=== PATIENT | male | born 1975 | race Caucasian/White ===

== ENCOUNTER 2016-05-29 00:47 | Emergency (ER) | payer MEDICAID, OTHER ==
[~2016-05-29] VITALS: Wt 104.0 kg
[2016-05-29] MEDS ORDERED: SOD CHLORIDE 0.9% 1,000 ML IV STA (01:15)
[2016-05-29] MEDS ORDERED: KETOROLAC 30 MG INJ IV STA (01:15)
[2016-05-29] MEDS ORDERED: ONDANSETRON 4 MG INJ IV STA ×2 (01:15→03:28)
--- NOTE | 2016-05-29 01:38 | ERD ---
ER Documentation Chief Complaint Date/Time DATE: 05/29/16 TIME: 01:35 Chief Complaint Right flank pain x3 hours ago. Hx of Kidney stone. HPI Patient is a 41-year-old male who presents to the ED with right flank pain 3 hours. He states that he has had kidney stones in the past and states that his pain is exactly what he felt like when he had a passing kidney stone. He states that the pain came on suddenly and is constant and he is unable to find a comfortable position. Denies dysuria. Denies fever or chills. Has not taken anything for his symptoms. Denies abdominal pain but also complains of nausea without vomiting. Last bowel movement was today. Denies headache or dizziness. Denies neck pain or stiffness. Denies chest pain, cough, shortness of breath or difficulty breathing. ROS All systems reviewed and are negative except as per history of present illness. Medications Home Meds Active Scripts Tamsulosin Hcl* (Flomax*) 0.4 Mg Cap.er.24h, 0.4 MG PO BID, #30 CAP Prov:YONI FLOWER PA-C 05/29/16 Ondansetron Hcl* (Zofran*) 4 Mg Tablet, 4 MG PO Q6H for NAUSEA AND/OR VOMITING, #30 TAB Prov:YONI FLOWER-C 05/29/16 Hydrocodone/Acetaminophen (Tarkio 5-325 Tablet) 1 Each Tablet, 1 TAB PO Q6H Y for PAIN, #7 TAB Prov:CYNTHIATABARRIEANYONI-C 05/29/16 Allergies Allergies: Coded Allergies: No Known Allergy (Unverified , 04/17/13) PMhx/Soc History of Surgery: No Anesthesia Reaction: No Hx Neurological Disorder: No Hx Respiratory Disorders: No Hx Psychiatric Problems: No Hx Alcohol Use: No Hx Substance Use: No Hx Tobacco Use: No Smoking Status: Current some day smoker Physical Exam Vitals Vital Signs Date Time Temp Pulse Resp B/P Pulse Ox O2 Delivery O2 Flow Rate FiO2 05/29/16 00:55 98.3 78 18 137/79 98 Physical Exam GENERAL: Well-developed, well-nourished male. Appears in no acute distress. HEAD: Normocephalic, atraumatic. EYES: Pupils are equally reactive bilaterally. EOMs grossly intact. No conjunctival erythema. ENT: Moist mucous membranes. No uvula deviation. No kissing tonsils. No exudates. NECK: Supple. No lymphadenopathy or thyromegaly. No meningismus. negative kernig. negative brudinski. LUNG: Clear to auscultation bilaterally. No rhonchi, wheezing, rales or coarse breath sounds. HEART: Regular rate and rhythm. No murmurs, rubs or gallops. Extremities: Equal pulses bilaterally. No peripheral clubbing, cyanosis or edema. No unilateral leg swelling. NEUROLOGIC: Alert and oriented. Moving all four extremities. 5/5 strength in all extremities. Normal speech. Steady gait. SKIN: Normal color. Warm and dry. No rashes or lesions. Capillary refill < 2 seconds Result Diagram: 05/29/1622905/29/16 023 Results 24 hrs Laboratory Tests Test 05/29/16 02:30 White Blood Count 8.710^3/ul Red Blood Count 3.9910^6/ul Hemoglobin 11.7g/dl Hematocrit 35.8% Mean Corpuscular Volume 89.7fl Mean Corpuscular Hemoglobin 29.3pg Mean Corpuscular Hemoglobin Concent 32.7g/dl Red Cell Distribution Width 12.7% Platelet Count 89010^3/UL Mean Platelet Volume 10.5fl Neutrophils % 74.0% Lymphocytes % 16.4% Monocytes % 6.6% Eosinophils % 2.4% Basophils % 0.3% Nucleated Red Blood Cells % 0.0/100WBC Neutrophils # 6.510^3/ul Lymphocytes # 1.410^3/ul Monocytes # 0.610^3/ul Eosinophils # 0.210^3/ul Basophils # 0.010^3/ul Nucleated Red Blood Cells # 0.010^3/ul Urine Color BROWN Urine Clarity CLEAR Urine pH 7.0 Urine Specific Gantt 1.020 Urine Ketones NEGATIVE Urine Nitrite NEGATIVE Urine Bilirubin NEGATIVE Urine Urobilinogen 0.2 E.U./dL Urine Leukocyte Esterase NEGATIVE Urine Microscopic RBC >200/HPF Urine Microscopic WBC 0-2/HPF Urine Bacteria RARE Urine Mucus FEW Urine Hemoglobin 3+ Urine Glucose NEGATIVE% Urine Total Protein 1+ Sodium Level 144mmol/L Potassium Level 4.2mmol/L Chloride Level 102mmol/L Carbon Dioxide Level 30mmol/L Anion Gap 16 Blood Urea Nitrogen 24mg/dl Creatinine 0.85mg/dl Glucose Level 107mg/dl Calcium Level 9.4mg/dl Total Bilirubin 0.1mg/dl Direct Bilirubin 0.00mg/dl Indirect Bilirubin 0.1mg/dl Aspartate Amino Transf (AST/SGOT) 26IU/L Alanine Aminotransferase (ALT/SGPT) 26IU/L Alkaline Phosphatase 63IU/L Total Protein 7.6g/dl Albumin 4.2g/dl Globulin 3.40g/dl Albumin/Globulin Ratio 1.23 Lipase 42U/L Current Medications Medications (Trade) Dose Ordered Sig/Jay Route PRN Reason Start Time Stop Time Status Last Admin Dose Admin Sodium Chloride (NS) 1,000 ml @ 1,000 mls/hr Q1H STAT IV 05/29/16 01:15 05/29/16 02:14 DC 05/29/16 02:11 Ondansetron HCl (Zofran Inj) 4 mg ONCE STAT IV 05/29/16 01:15 05/29/16 01:17 DC 05/29/16 02:02 Ketorolac Tromethamine (Toradol) 30 mg ONCE STAT IV 05/29/16 01:15 05/29/16 01:17 DC 05/29/16 02:02 Morphine Sulfate (morphine) 4 mg ONCE STAT IV 05/29/16 03:28 05/29/16 03:29 DC Ondansetron HCl (Zofran Inj) 4 mg ONCE STAT IV 05/29/16 03:28 05/29/16 03:29 DC Procedures/MDM ER COURSE: I kept the patient and/or family informed of laboratory and diagnostic imaging results throughout the emergency room course. EKG, MONITORS, & DIAGNOSTIC IMAGING: [place] [id number] Radiology Main Line: [phone] DIAGNOSTIC IMAGING REPORT Patient: KIRK OCONNELL : 1975 Age: 41 Sex: M MR #: [id number] DOS: 05/29/16 0115 Ordering MD: YONI FLOWER PA-C Location: E Room/Bed: PROCEDURE: CT Abdomen and pelvis without contrast. CLINICAL INDICATION: Abdominal pain. TECHNIQUE: CT scan of the abdomen and pelvis was performed on a multi- detector high-resolution CT scanner. Contiguous axial images were obtained from the lung bases to the ischial tuberosities without intravenous contrast. Coronal and sagittal reformatted images were also obtained. Images were reviewed on the PACS workstation. One or more of the following dose reduction techniques were used: - Automated exposure control. - Adjustment of the mA and/or kV according to patient size. - Use of iterative reconstruction technique. Exam CTD/vol = 18.70 mGy. Total exam DLP = 1271.84 mGy-cm. COMPARISON: 04/17/2013. FINDINGS: Evaluation of the lung bases demonstrates no pleural or parenchymal disease. Abdomen: The liver is normal in size. There is no focal mass or dilatation of the biliary tree. The gallbladder is not distended. The spleen, pancreas and bilateral adrenal glands are within normal limits. Bilateral kidneys are normal in size with no contour deforming mass identified. There are small 1-2 mm renal calculi bilaterally. There is mild right-sided hydronephrosis with perinephric stranding. There is no contour deforming renal mass identified. There is no retroperitoneal adenopathy. The abdominal aorta is of normal caliber. There is a tiny umbilical hernia containing fat. There is no abnormal bowel wall thickening or distension. There is no bowel obstruction or free air. A normal appendix is identified. There is no diverticulosis or diverticulitis. There is no ascites. Pelvis: The bladder is unremarkable. There is a 4.0 x 2.5 mm calculus within the right distal ureter. The prostate and seminal vesicles are within normal limits. There is no significant pelvic adenopathy or free fluid. Evaluation of the osseous structures demonstrates no suspicious lytic or blastic lesion. IMPRESSION: Right distal ureteral 4.0 x 2.5 mm calculus with mild right-sided hydronephrosis. Bilateral renal calculi. Tiny umbilical hernia containing fat. .Won Hall MD, MD Date Time Electronically viewed and signed by .Won Hall MD, MD on 05/29/2016 02:48 .T/ CC: YONI FLOWER PA-C MEDICATIONS: IV fluids, Zofran, Toradol and morphine. Patient tolerated well and stated improvement in symptoms. LAB INTERPRETATION: CBC showed no evidence of systemic infection or severe anemia. CMP showed no evidence of electrolyte abnormalities, severe acidosis, alkalosis, renal failure , or liver disease. Lipase showed no evidence of acute pancreatitis. UA showed no evidence of leukocytes, nitrites. Urine shows 3+ hemoglobin MEDICAL DECISION MAKING: This is a 41-year-old male who presents with flank pain 1 day. Vital signs were reviewed. Patient is afebrile. Patient is not hypoxic. Patient has nephrolithiasis. Low suspicion for cauda equine syndrome, spinal epidural hematoma, spinal epidural abscess, osteomyelitis, fracture, aortic dissection, AAA, pyelonephritis, septic stone, obstructed stone. I consulted with Dr. Serrano regarding this patient who reviewed his imaging studies and laboratory studies. Patient is stable for outpatient therapy I reexamined patient after administration of MAC medication and he stated improvement in symptoms. DISCHARGE: At this time, patient is stable for discharge and outpatient management with no new complaints during the ER course. Patient was sent home with copy of his imaging studies and laboratory studies, Tarkio for pain, Flomax and Zofran for nausea advised patient to follow-up with urologist. Names of urologists were given.. Patient will be discharged home with instructions to recheck for new or worsening symptoms such as fever, nausea, weakness, LOC and to follow up with primary care in the next 1-2 days. Patient was advised to return to the ER for any new or worsening symptoms. Plan was discussed and patient and/or family understands and agrees. Home instructions were given. Departure Diagnosis: Primary Impression: Flank pain Condition: Stable YONI FLOWER PA-C May 29, 2016 01:38
[2016-05-29 02:33] LABS: ADD SCAN DIFF NO
[2016-05-29 02:34] LABS: ADD UMIC YES; URINE BILIRUBIN (Dip) NEGATIVE (NEGATIVE); URINE BLOOD (Dip) 3+ (NEGATIVE); URINE COLOR BROWN (YELLOW); URINE GLUCOSE (Dip) NEGATIVE (NEGATIVE); URINE KETONES (Dip) NEGATIVE (NEGATIVE); URINE LEUKOCYTE ESTERASE (Dip) NEGATIVE (NEGATIVE); URINE NITRITE (Dip) NEGATIVE (NEGATIVE); URINE TOTAL PROTEIN (Dip) 1+ (NEGATIVE); URINE UROBILINOGEN (Dip) 0.2 E.U./dL (0.1-1.0)
[2016-05-29 02:38] LABS: BASOPHILS % 0.3 % (0.0-2.0); EOSINOPHILS # 0.2 10^3/ul (0.0-0.5); EOSINOPHILS % 2.4 % (0.0-7.0); HEMATOCRIT 35.8 % (42.0-52.0); HEMOGLOBIN 11.7 g/dl (14.0-18.0); LYMPHOCYTES # 1.4 10^3/ul (0.8-2.9); LYMPHOCYTES % 16.4 % (15.0-51.0); MEAN CORPUSCULAR HEMOGLOBIN 29.3 pg (29.0-33.0); MEAN CORPUSCULAR HGB CONC 32.7 g/dl (32.0-37.0); MEAN CORPUSCULAR VOLUME 89.7 fl (82.0-101.0); MEAN PLATELET VOLUME 10.5 fl (7.4-10.4); MONOCYTE # 0.6 10^3/ul (0.3-0.9); MONOCYTES % 6.6 % (0.0-11.0); NEUTROPHIL # 6.5 10^3/ul (1.6-7.5); PLATELET COUNT 305 10^3/UL (140-415); RED BLOOD COUNT 3.99 10^6/ul (4.70-6.10); RED CELL DISTRIBUTION WIDTH 12.7 % (11.5-14.5); WHITE BLOOD COUNT 8.7 10^3/ul (4.8-10.8)
[2016-05-29 02:45] LABS: ALBUMIN 4.2 g/dl (3.3-4.9); POTASSIUM 4.2 mmol/L (3.5-5.1)
[2016-05-29 02:47] LABS: CREATININE 0.85 mg/dl (0.61-1.24)
[2016-05-29 02:48] LABS: ALBUMIN/GLOBULIN RATIO 1.23; BILIRUBIN,INDIRECT 0.1 mg/dl (0-1.1); BILIRUBIN,TOTAL 0.1 mg/dl (0.2-1.3); CALCIUM 9.4 mg/dl (8.4-10.2); TOTAL PROTEIN 7.6 g/dl (6.1-8.1)
--- NOTE | 2016-05-29 02:49 | RADRPT ---
PROCEDURE: CT Abdomen and pelvis without contrast. CLINICAL INDICATION: Abdominal pain. TECHNIQUE: CT scan of the abdomen and pelvis was performed on a multi-detector high-resolution CT scanner. Contiguous axial images were obtained from the lung bases to the ischial tuberosities wit hout intravenous contrast. Coronal and sagittal reformatted images were also obtained. Images were reviewed on the PACS workstation. One or more of the following dose reduction techniques were used: - Automated exposure control. - Adjustment of the mA and/or kV according to patient size. - Use of iterative reconstruction technique. Exam CTD/vol = 18.70 mGy. Total exam DLP = 1271.84 mGy-cm. COMPARISON: 04/17/2013. FINDINGS: Evaluation of the lung bases demonstrates no pleural or parenchymal disease. Abdomen: The liver is normal in size. There is no focal mass or dilatation of the biliary tree. T he gallbladder is not distended. The spleen, pancreas and bilateral adrenal glands are within wandy l limits. Bilateral kidneys are normal in size with no contour deforming mass identified. There ar e small 1-2 mm renal calculi bilaterally. There is mild right-sided hydronephrosis with perinephric stranding. There is no contour deforming renal mass identified. There is no retroperitoneal adeno poncho. The abdominal aorta is of normal caliber. There is a tiny umbilical hernia containing fat. There is no abnormal bowel wall thickening or dist ension. There is no bowel obstruction or free air. A normal appendix is identified. There is no d iverticulosis or diverticulitis. There is no ascites. Pelvis: The bladder is unremarkable. There is a 4.0 x 2.5 mm calculus within the right distal uret er. The prostate and seminal vesicles are within normal limits. There is no significant pelvic kyle nopathy or free fluid. Evaluation of the osseous structures demonstrates no suspicious lytic or blastic lesion. IMPRESSION: Right distal ureteral 4.0 x 2.5 mm calculus with mild right-sided hydronephrosis. Bilateral renal calculi. Tiny umbilical hernia containing fat. .Won Hall MD, MD Date Time Electronically viewed and signed by .Won Hall MD, MD on 05/29/2016 02:48 .T/
[2016-05-29 03:00] LABS: URINE RBCS >200 /HPF (0)
[2016-05-29 03:01] LABS: BACTERIA,URINE RARE; MUCUS,URINE FEW
[2016-05-29] MEDS ORDERED: morphine 4 MG/ML VIAL IV STA (03:28)
[2016-05-29] MEDS ORDERED: HYDR-906 PO (03:31)
[2016-05-29] MEDS ORDERED: TAMS-14 PO (03:31)
[2016-05-29] MEDS ORDERED: ONDA4TAB8 PO (03:31)
[2016-05-29 04:11] VITALS: BP 125/76; PULSE 67; RESP 20
== END 2016-05-29 04:13 | disposition home or self-care (01) ==
LOC: FTE 00:47
DX: R10.9 Unspecified abdominal pain (principal); R11.0 Nausea; F17.210 Nicotine dependence, cigarettes, uncomplicated
CPT/HCPCS: 36415; 74176; 80053; 81001; 83690; 85025; 96374; 96375; 96376; J1885; J2270; J2405; J7030; Z7502; 81003

== ENCOUNTER 2017-05-21 00:49 | Emergency (ER) | END 2017-05-21 02:06 | disposition left against medical advice (07) ==